=== PATIENT | male | born 1955 | race African-American/Black ===

== ENCOUNTER 2021-04-20 15:18 | Emergency (ER) | payer OTHER ==
[~2021-04-20] VITALS: Ht 167.7 cm; Wt 78.0 kg
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
[2021-04-20 19:53] VITALS: BP 124/78
== END 2021-04-20 18:04 | disposition home or self-care (01) ==
LOC: ER 15:23
DX: S05.11XA Contusion of eyeball and orbital tissues, right eye, initial encounter (principal); G89.29 Other chronic pain; M54.9 Dorsalgia, unspecified; F17.210 Nicotine dependence, cigarettes, uncomplicated; Z79.891 Long term (current) use of opiate analgesic; Y04.0XXA Assault by unarmed brawl or fight, initial encounter
CPT/HCPCS: 70480